=== PATIENT | female | born 1945 | race Caucasian/White ===

== ENCOUNTER 2016-09-25 06:57 | Inpatient (IN) ==
[2016-09-20 12:25] LABS: Appearance,Urine CLEAR; Bilirubin,Urine NEG (NEG); Color,Urine YELLOW; Glucose,Urine (UA) NEGATIVE (NEG); Leukocyte Esterase,Urine NEG /uL (NEG); Nitrate,Urine NEG (NEG); Protein,Urine NEG (NEG); Specific Gravity,Urine 1.009 (1.000-1.035); Urine Blood NEG mg/dL (<0.03); Urobilinogen,Urine NEG (NEG)
[2016-09-20 13:17] LABS: Basophils # (Auto) 0 K/mcL (0.0-0.3); Basophils % (Auto) 0.7 % (0.0-2.0); Eosinophils # (Auto) 0.1 K/mcL (0.0-0.7); Eosinophils % (Auto) 1.2 % (0.0-7.0); Lymphocytes % (Auto) 39.5 % (15.5-49.0); Mean Cell Volume 94.8 fL (80.0-100.0); Mean Corpuscular HGB Conc 34.5 g/dL (31.0-36.0); Mean Corpuscular Hemoglobin 32.8 pg (26.0-34.0); Monocytes # (Auto) 0.4 K/mcL (0.1-0.9); Monocytes % (Auto) 7.6 % (1.0-12.0); Platelet Count 271 K/mcL (140-440); RBC 4.12 M/mcL (4.00-5.20); Red Cell Distribution Width 12.9 % (11.5-14.5)
[2016-09-20 13:31] LABS: Blood Urea Nitrogen 11 mg/dl (8-23)
[~2016-09-25 06:57] MED LIST: CELECOXIB 200 MG CAPSULE PO SCH; PREGABALIN 75 MG CAPSULE PO SCH; ceFAZolin 1 GM VIAL IV SCH; oxyCODONE 10 MG TAB.ER.12H PO SCH
[2016-09-25] MEDS ORDERED: SCOPOLAMINE 1 PATCH PATCH TOPICAL ONE (07:10)
[2016-09-25] MEDS ORDERED: KETOROLAC 30 MG, ROPIVACAINE HCL/PF 49.5 ML, EPINEPHrine 0.5 MG, 0.9 % SODIUM CHLORIDE ... IJ ONE (07:30)
[2016-09-25] MEDS ORDERED: LIDOCAINE HCL/PF 100 MG/5 ML SYRINGE IV ONE (10:05)
[2016-09-25] MEDS ORDERED: TRANEXAMIC ACID 1,000 MG/10 ML VIAL IV ONE ×2 (10:05→11:39)
[2016-09-25] MEDS ORDERED: PROPOFOL 200 MG/20 ML VIAL IV ONE (10:05)
[2016-09-25] MEDS ORDERED: ROPIVACAINE HCL/PF 30 ML VIAL IJ ONE (10:05)
[2016-09-25] MEDS ORDERED: MIDAZOLAM 5 MG/5 ML VIAL IV ONE (10:05)
[2016-09-25] MEDS ORDERED: DEXAMETHASONE 10 MG/ML VIAL IV ONE (10:05)
[2016-09-25] MEDS ORDERED: ONDANSETRON 4 MG/2 ML VIAL IV ONE (10:05)
[2016-09-25] MEDS ORDERED: GENTAMICIN SULFATE 800 MG/20 ML VIAL IR ONE (10:31)
[2016-09-25] MEDS ORDERED: diphenhydrAMINE 50 MG/ML VIAL IV PRN (10:51)
[2016-09-25] MEDS ORDERED: METHOCARBAMOL 1,000 MG/10 ML VIAL IV PRN (10:51)
[2016-09-25] MEDS ORDERED: FLUMAZENIL 0.1 MG/ML ML IV PRN (10:51)
[2016-09-25] MEDS ORDERED: LACTATED RINGERS 250 ML IV PRN (10:51)
[2016-09-25] MEDS ORDERED: BENZOCAINE/MENTHOL 1 LOZENGE PO PRN ×2 (10:51→11:39)
[2016-09-25] MEDS ORDERED: IPRATROPIUM/ALBUTEROL 3 ML AMPUL.NEB NEB PRN (10:51)
[2016-09-25] MEDS ORDERED: fentaNYL 100 MCG/2 ML VIAL IV PRN (10:51)
[2016-09-25] MEDS ORDERED: MEPERIDINE 25 MG/ML SYRINGE IV PRN (10:51)
[2016-09-25] MEDS ORDERED: NALOXONE HCL 0.4 MG/ML VIAL IV PRN (10:51)
[2016-09-25] MEDS ORDERED: ACETAMINOPHEN 1,000 MG/100 ML BOTTLE IV ONE (10:51)
[2016-09-25] MEDS ORDERED: PROMETHAZINE 25 MG/ML VIAL IV PRN (10:51)
[2016-09-25] MEDS ORDERED: ONDANSETRON 4 MG/2 ML VIAL IV PRN ×2 (10:51→11:39)
[2016-09-25] MEDS ORDERED: LACTATED RINGERS 1,000 ML IV SCH (11:00)
--- NOTE | 2016-09-25 11:38 | Brief Operative Note ---
Date of procedure: 09/25/16 Pre-op diagnosis: left knee oa Post-op diagnosis: same Procedure: left total knee arthroplasty Grafts/Implants: Yes Anesthesia: spinal Complications: none Surgeon: Billy Wylie Member Of [employer]: Severo Reyes Estimated blood loss (cc): 150 Tourniquet Time (Minutes): 54 Specimens Removed/Pathology: none sent Condition: stable Disposition: PACU
[2016-09-25] MEDS ORDERED: BISACODYL 10 MG SUPP.RECT PR PRN (11:39)
[2016-09-25] MEDS ORDERED: POLYETHYLENE GLYCOL 3350 17 GM PACKET PO PRN (11:39)
[2016-09-25] MEDS ORDERED: FLEETS ADULT ENEMA PR PRN (11:39)
[2016-09-25] MEDS ORDERED: ONDANSETRON ODT 4 MG TABLET SL PRN (11:39)
[2016-09-25] MEDS ORDERED: MAGNESIUM HYDROXIDE 30 ML ORAL.SUSP PO PRN (11:39)
[2016-09-25] MEDS: KETOROLAC 15 MG/ML VIAL IV SCH ×3 (12:31→23:36)
--- NOTE | 2016-09-25 12:41 | XRay Report ---
CLINICAL INFORMATION: Postop total knee prostheses COMPARISON: 08/23/2015 FINDINGS: Total knee prostheses is anatomically aligned. No osseous normality. Soft tissues swelling seen as expected IMPRESSION: Negative Interpreted and Authenticated by: Billy Shahid 09/25/16
[2016-09-25] MEDS: 0.9 % SODIUM CHLORIDE 1,000 ML IV SCH ×3 (13:15→23:37)
[2016-09-25] MEDS: HYDROmorphone 2 MG/ML SYRINGE IV PRN (13:46)
--- NOTE | 2016-09-25 14:00 | Operative Note ---
DATE OF OPERATION: 09/25/2016 PREOPERATIVE DIAGNOSIS: Degenerative joint disease, left knee. POSTOPERATIVE DIAGNOSIS: Degenerative joint disease, left knee. PROCEDURE: Left total knee arthroplasty. SURGEON: Kelly Wylie M.D. PANTOGRAPH II ENGRAVER SURGEON: Severo Reyes PA-C ANESTHESIA: Spinal with LMA assist. ESTIMATED BLOOD LOSS: 100 mL COMPLICATIONS: None noted. SPECIMENS REMOVED: None. DRAINS: None. TOURNIQUET TIME: 54 minutes at 300 mmHg. IMPLANTS: DePuy Attune tibial insert fixed bearing posterior stabilized size 5, 6 mm AOX, DePuy Attune patella medialized dome 35 mm cemented AOX, DePuy Attune femoral posterior stabilized size 5 left cemented, DePuy Attune tibial based fixed bearing size 5 cemented. INDICATIONS: The patient has had a long-standing history of worsening pain in the knee that has failed conservative treatment. Radiographs have confirmed advanced degenerative joint disease. After a long discussion about treatment options, the patient elected to proceed with a knee arthroplasty. The risks and benefits were discussed with the patient in detail including, but not limited to, the risks of anesthesia, problems with the heart or lungs related to anesthesia, infection, compromise or injury to the nerves and blood vessels, deep venous thrombosis, pulmonary embolism, pneumonia, continued pain after surgery, worsening pain or symptoms after surgery, swelling, loss of motion, instability, leg length discrepancy, and need for repeat surgery. DESCRIPTION OF PROCEDURE: The patient was seen in the pre-anesthesia waiting room where all questions were answered and the correct side and site were identified and marked. The patient was transferred to the operating room and administered the anesthetic and given pre-operative antibiotics. A time-out was then called. The extremity was prepped and draped, exsanguinated, and the tourniquet was inflated to 300 mmHg. A midline skin incision was then made with a standard medial parapatellar arthrotomy. Debridement of the menisci, ACL, and PCL was performed followed by balancing releases in the medial lateral plane. We then established intramedullary access to both the femur and tibia in a standard fashion. The femoral guide taylor was initially placed with the distal femoral guide, pinned into place, and the distal femoral cut was performed and checked with a flat plate. We then turned our attention to the tibia. The intramedullary guide was placed with the proximal tibial cutting block. The block was appropriately positioned off the affected side, varus and valgus was checked with the extra-medullary guide, and the block was pinned into place. The proximal tibial cut was performed and the tibia was prepared for the tibial implant with appropriate rotation. The tibia, femur, and posterior compartment were debrided of osteophytes, loose bodies, and meniscal fragments We then used the gap balancing technique to balance extension with the first two cuts and good balancing was obtained with a 10 millimeter gap block. We turned our attention back to the femur and used the referencing block and implant to size appropriately. Using the gap balancing technique for the flexion space we set our rotation of the femur off the tibial cut. Anesthesia gave the patient 1 gram of Tranexamic Acid via an intravenous route. We placed the 4 in 1 cutting block and made anterior, posterior, and chamfer cuts. Box plasty cuts were then made in a standard fashion for the posterior stabilized prosthesis. We then completed osteophyte release and posterior capsule release from the posterior compartment. Trials were placed and we chose the polyethylene insert thickness that provided the best stability in all planes. With the trials in place, we did a measured resection for a resurfacing patella. We sized the patella and placed the patella trial and performed a lateral facetectomy with the saw and rongeur. Good tracking was obtained. We removed all trials, irrigated and dried all cut surfaces. We cemented the components into place including tibia, femur and patella. We placed a trial liner and held the knee in full extension with the patella compressed while the cement cured. We then removed all excess cement and placed the final polyethylene tibiofemoral component. Irrigation with 3 liters of antibiotic saline was then performed using jet-lavage. We let the tourniquet down and coagulated bleeding vessels. We injected a 100 cubic centimeter volume including Ropivacaine 49.25 cubic centimeters at 5 milligrams per cubic centimeter, Ketorolac 30 milligrams, and Epinephrine 0.5 milligrams into 100 cubic centimeters volume of normal saline. We placed a deep drain and closed the retinaculum with looped #0 Maxon. We closed the subcutaneous tissue and skin in layers out to shira in the skin. A sterile pressure dressing was applied. All needle and sponge counts were correct. The patient was transferred to the recovery room in stable condition. FEMI:hiral Job ID: [id number] Doc ID: [id number] Kelly Wylie MD
[2016-09-25] MEDS: oxyCODONE/APAP 5/325MG TABLET PO PRN (14:57)
[2016-09-25] MEDS: PROMETHAZINE 25 MG TABLET PO PRN (14:59)
[2016-09-25] MEDS: 0.9 % SODIUM CHLORIDE 10 ML SYRINGE IV SCH ×2 (15:01→20:38)
[2016-09-25] MEDS: ceFAZolin 1 GM VIAL IV SCH (18:04)
[2016-09-25] MEDS: SENNOSIDES 1 TABLET PO SCH (20:24)
[2016-09-25] MEDS: SERTRALINE 50 MG TABLET PO SCH (20:33)
[2016-09-25] MEDS: amLODIPine 5 MG TABLET PO SCH (20:33)
[2016-09-25] MEDS: ATORVASTATIN 20 MG TABLET PO SCH (20:33)
[2016-09-25] MEDS: ASPIRIN 325 MG ENTERIC COATED TABLET PO SCH (20:33)
[2016-09-25] MEDS: LISINOPRIL 20 MG TABLET PO SCH (20:33)
[2016-09-25] MEDS: DOCUSATE SODIUM 100 MG CAPSULE PO SCH (20:34)
[2016-09-25] MEDS: LORATADINE 10 MG TABLET PO SCH (20:34)
[2016-09-26] MEDS: ceFAZolin 1 GM VIAL IV SCH (02:00)
[2016-09-26] MEDS: oxyCODONE/APAP 5/325MG TABLET PO PRN ×5 (04:07→23:27)
[2016-09-26] MEDS: PROMETHAZINE 25 MG TABLET PO PRN ×4 (04:07→17:31)
[2016-09-26] MEDS: 0.9 % SODIUM CHLORIDE 10 ML SYRINGE IV SCH ×3 (04:31→21:15)
--- NOTE | 2016-09-26 06:28 | Orthopedic Progress Note ---
Subjective Patient information: Note initiated : 09/26/16 at 6:26 am Service Date, if different from initiated Date: [] Patient: Phylicia Baeza 71 y/o F admitted on 09/25/16 for Left Total Knee Arthroplasty. Chief Complaint: [] Interval history: doing well. painful overnight Objective Vital signs: Vital Signs Temp Pulse Resp BP Pulse Ox 09/26/16 04:00 97.7 F 63 12 132/75 93 09/26/16 00:00 97.6 F 63 12 125/71 92 09/25/16 22:14 93 09/25/16 22:13 93 09/25/16 20:00 98.6 F 71 12 116/66 91 09/25/16 16:25 97.2 F 76 16 130/78 96 09/25/16 14:51 77 16 143/75 98 09/25/16 14:34 66 150/78 09/25/16 14:19 64 138/81 09/25/16 14:05 67 139/72 09/25/16 13:50 65 130/72 09/25/16 13:35 65 132/68 09/25/16 13:19 64 20 153/79 09/25/16 13:04 67 18 127/72 98 09/25/16 12:38 60 14 129/60 99 09/25/16 12:30 60 14 119/55 98 09/25/16 12:25 60 14 124/60 96 09/25/16 12:21 65 19 117/58 99 09/25/16 12:20 60 14 124/58 98 09/25/16 12:15 64 16 119/53 100 09/25/16 12:10 64 27 H 114/58 100 09/25/16 12:05 97.4 F 60 14 114/59 99 09/25/16 06:57 97.8 F 68 16 165/98 98 Intake and Output 09/25/16 09/26/16 09/26/16 21:59 05:59 13:59 Intake Total 740 / 740 1750 / 1750 Output Total 1200 / 1200 350 / 350 Balance -460 / -460 1400 / 1400 Intake: IV 1000 / 1000 Sodium Chloride 0.9% 1, 1000 / 1000 000 ml @ 100 mls/hr IV . Q10H [facility] Rx#:[id number] Oral 740 / 740 750 / 750 Output: Void Amount 1200 / 1200 350 / 350 Other: Meal Dinner Percent of Meal Consumed 100% Feeding Ability Independent # Voids 1 Weight 169 lb Intake & Output: Intake & Output 09/25/16 09/26/16 09/26/16 21:59 05:59 13:59 Intake Total 740 / 740 1750 / 1750 Output Total 1200 / 1200 350 / 350 Balance -460 / -460 1400 / 1400 Weight 169 lb Intake: IV 1000 / 1000 Sodium Chloride 0.9% 1, 1000 / 1000 000 ml @ 100 mls/hr IV . Q10H [facility] Rx#:[id number] Oral 740 / 740 750 / 750 Output: Void Amount 1200 / 1200 350 / 350 Other: Meal Dinner Percent of Meal Consumed 100% Feeding Ability Independent # Voids 1 Incision: Yes healing Incision clean and dry: Yes Dressing: Yes clean, Yes dry, Yes intact Weight bearing status: full Neurological exam IM: Yes alert, Yes normal gait, Yes oriented X3, Yes neurovascular intact Extremities exam IM: No calf tenderness, Yes Foot pink and warm, Yes neurovascular intact - Labs CBC & BMP: 09/20/16 10:40 09/20/16 10:40 Labs: Orthopedic Labs 09/20/16 10:40 PT 13.3 INR 1.0 09/26/16 09/20/16 05:34 10:40 Hgb Pending 13.5 Hct Pending 39.0 Assessment and Plan (1) Total knee replacement status pod 1 s/p tka pain control dvt prophylaxis PT d/c planning - home tomorrow if improving Status: Acute
--- NOTE | 2016-09-26 06:30 | Discharge Summary ---
Ortho Discharge - TKA - Patient Instructions Diet: Regular Diet Activity: ambulate with assistive device, weight bearing as tolerated Total Knee Protocol: For Total Knee: Start ROM SEDA with stationary bike or rocking chair. Work on gaining full extension of knee. Posterior dislocation precautions provided. Hip abductor strengthening and gait training instructions provided. Apply Cryocuff as instructed. Dressing Care: May shower in 2 days - Problem Maintenance (1) Total knee replacement status Status: Acute - Follow Up Plan Follow Up Appointments: Billy Wylie MD [Physician] - 10/10/16 11:20 am Disposition: Home, Self-Care Prognosis: Good Rehab Potential: Good I certify that the patient requires SNF services: No Overall status at discharge: patient is progressing back to baseline - Orders For Discharge Prescriptions: Aspirin [Ecotrin] 325 mg PO BID #60 oxyCODONE/APAP [Percocet 5-325 mg] 1 - 2 tab PO Q4HP PRN #60 tablet PRN Reason: Pain Promethazine [Phenergan] 25 mg PO Q4HP PRN #60 tablet PRN Reason: Nausea And Vomiting
[2016-09-26] MEDS: KETOROLAC 15 MG/ML VIAL IV SCH ×3 (06:32→17:40)
[2016-09-26] MEDS: LEVOTHYROXINE 75 MCG TABLET PO SCH (07:50)
[2016-09-26] MEDS: ASPIRIN 325 MG ENTERIC COATED TABLET PO SCH ×2 (09:19→21:10)
[2016-09-26] MEDS: DOCUSATE SODIUM 100 MG CAPSULE PO SCH ×2 (09:19→21:10)
[2016-09-26] MEDS: METHOCARBAMOL 750 MG TABLET PO PRN (10:23)
[2016-09-26] MEDS: 0.9 % SODIUM CHLORIDE 1,000 ML IV SCH (12:45)
[2016-09-26] MEDS: HYDROmorphone 2 MG/ML SYRINGE IV PRN (13:51)
[2016-09-26] MEDS: amLODIPine 5 MG TABLET PO SCH (21:10)
[2016-09-26] MEDS: LISINOPRIL 20 MG TABLET PO SCH (21:10)
[2016-09-26] MEDS: ATORVASTATIN 20 MG TABLET PO SCH (21:10)
[2016-09-26] MEDS: SERTRALINE 50 MG TABLET PO SCH (21:10)
[2016-09-26] MEDS: LORATADINE 10 MG TABLET PO SCH (21:10)
[2016-09-26] MEDS: SENNOSIDES 1 TABLET PO SCH (21:11)
[2016-09-27] MEDS: KETOROLAC 15 MG/ML VIAL IV SCH ×2 (00:17→05:36)
[2016-09-27] MEDS: METHOCARBAMOL 750 MG TABLET PO PRN (00:25)
[2016-09-27] MEDS: 0.9 % SODIUM CHLORIDE 10 ML SYRINGE IV SCH (05:37)
--- NOTE | 2016-09-27 05:37 | Orthopedic Progress Note ---
Subjective Patient information: Note initiated : 09/27/16 at 5:35 am Service Date, if different from initiated Date: [] Patient: Phylicia Baeza 71 y/o F admitted on 09/25/16 for Left Total Knee Arthroplasty. Chief Complaint: [] Interval history: doing much better Objective Vital signs: Vital Signs Temp Pulse Resp BP BP Pulse Ox 09/27/16 04:00 98.1 F 65 20 140/79 95 09/26/16 23:30 98.2 F 70 20 144/78 92 09/26/16 19:48 97.9 F 69 22 135/73 94 09/26/16 16:10 98.3 F 16 125/69 94 09/26/16 11:51 98.2 F 16 128/72 94 09/26/16 07:17 96 09/26/16 06:56 97.5 F 16 133/75 95 Intake and Output 09/26/16 09/26/16 09/27/16 13:59 21:59 05:59 Intake Total 720 / 720 1020 / 1020 350 / 350 Output Total 900 / 900 300 / 300 425 / 425 Balance -180 / -180 720 / 720 -75 / -75 Intake: Oral 720 / 720 1020 / 1020 350 / 350 Output: Void Amount 900 / 900 300 / 300 425 / 425 Other: Meal Lunch Dinner Percent of Meal Consumed 100% 100% Feeding Ability Independent Weight 170 lb Patient Weight 09/27/16 05:59 Weight 170 lb Intake & Output: Intake & Output 09/26/16 09/26/16 09/27/16 13:59 21:59 05:59 Intake Total 720 / 720 1020 / 1020 350 / 350 Output Total 900 / 900 300 / 300 425 / 425 Balance -180 / -180 720 / 720 -75 / -75 Weight 170 lb Intake: Oral 720 / 720 1020 / 1020 350 / 350 Output: Void Amount 900 / 900 300 / 300 425 / 425 Other: Meal Lunch Dinner Percent of Meal Consumed 100% 100% Feeding Ability Independent Incision: Yes healing Incision clean and dry: Yes Dressing: Yes clean, Yes dry, Yes intact Weight bearing status: full Neurological exam IM: Yes abnormal gait, Yes alert, Yes oriented X3, Yes motor sensory intact, Yes neurovascular intact Extremities exam IM: No calf tenderness, Yes Foot pink and warm, Yes neurovascular intact - Labs CBC & BMP: 09/26/16 05:34 09/20/16 10:40 Labs: Orthopedic Labs 09/20/16 10:40 PT 13.3 INR 1.0 09/27/16 09/26/16 09/20/16 04:40 05:34 10:40 Hgb Pending 11.0 L 13.5 Hct Pending 31.9 L 39.0 Assessment and Plan (1) Total knee replacement status pod 2 s/p tka pain control dvt prophylaxis PT d/c planning - home today if passes pt Status: Acute
[2016-09-27] MEDS: LEVOTHYROXINE 75 MCG TABLET PO SCH (07:25)
[2016-09-27] MEDS: oxyCODONE/APAP 5/325MG TABLET PO PRN (07:25)
[2016-09-27] MEDS: DOCUSATE SODIUM 100 MG CAPSULE PO SCH (09:18)
[2016-09-27] MEDS: ASPIRIN 325 MG ENTERIC COATED TABLET PO SCH (09:18)
== END 2016-09-27 09:25 | disposition home or self-care (01) | DRG 470 ==
LOC: MEDSUR 06:57
PROVIDERS: ADMIT Orthopaedic Surgery Sports Medicine; ATTEND Orthopaedic Surgery Sports Medicine